=== PATIENT | male | born 1990 | race Two or more races ===

== ENCOUNTER 2024-07-01 11:34 | Emergency (ER) | payer BC, SELFPAY ==
[2024-07-01 11:52] VITALS: PULSE 88; RESP 18; O2SAT 99; BMI 26.6
--- NOTE | 2024-07-01 12:03 | PD.EDPSYCH ---
ED Psych RME/HPI General Chief Complaint: Suicidal Stated Complaint: MENTAL EVAL Time Seen by Provider: 07/01/24 11:41 Arrival date/time: 07/01/24 11:34 RME / HPI RME / HPI Narrative: 33-year-old male patient with no past medical history of mental disorder, except for obesity, currently taking phentermine, for 1 year now, came in for evaluation voluntarily for suicidal thoughts. Patient been having worsening depression, for the last 3 to 4 months, but today, patient felt suicidal, with a concrete plan of grabbing a kitchen knife and stabbing his chest. Patient denies any homicidal ideation. Patient is cooperative and calm. Related Data Previous Rx's ?Medication ?Instructions ?Recorded hydrocortisone acetate 25 mg 25 mg OK BID #24 ea 05/31/20 rectal suppository (Anucort-HC) ibuprofen 600 mg tablet 600 mg PO Q8H PRN pain #30 tabs 02/12/21 omeprazole 20 mg capsule,delayed 20 mg PO QDAY #30 caps 02/12/21 release ibuprofen 800 mg tablet 800 mg PO TID PRN pain #30 tabs 05/21/22 Allergies Allergy/AdvReac Type Severity Reaction Status Date / Time No Known Allergies Allergy Verified 06/28/22 08:43 Review of Systems Review of Systems Narrative Review of Systems: Review of system reviewed and within normal limits except mentioned in HPI ED Exam Narrative Physical exam: VITAL SIGNS: Reviewed. GENERAL APPEARANCE: Alert and interactive, follows commands, no acute distress, HEAD AND FACE: Non-traumatic. ENT: PERRL, pink conjunctivitis, eyelid no trauma, Mucous membrane moist. NECK: Supple, nontender, no nuchal rigidity. CHEST: No tenderness, no crepitus, no paradoxical movement, no retractions. LUNGS: Clear, well ventilated, symmetric, no rales, no wheezing, no ronchi, no stridor, good breath sounds bilaterally. HEART: Regular rate, regular rhythm, no murmur, no gallops. ABDOMEN: Soft, positive bowel sounds, nondistended, no guarding, nontender, no rebound, no masses, RECTAL: Deferred. GENITAL: Deferred. NEUROLOGICAL: Gross motor function intact sensory function intact, Appropriate for age. MUSCULOSKELETAL: low back nontender, full range of motion. EXTREMITIES: Nontender, full range of motion. SKIN: Color pink, dry, no rash, no lacerations, no abrasions, no contusions. LYMPHATICS: Deferred. Course Quality Measures none Orders Category Date Time Status Acetaminophen Stat Lab 07/01/24 12:12 Completed Alcohol, Blood Medical Stat Lab 07/01/24 12:12 Completed CBC Stat Lab 07/01/24 12:12 Completed CMP [Comprehensive Metabolic Panel] Stat Lab 07/01/24 12:12 Completed Drug Screen,Urine Stat Lab 07/01/24 13:04 Completed Salicylate Stat Lab 07/01/24 12:12 Completed Urinalysis Stat Lab 07/01/24 13:04 Received Vital Signs Vital signs: Vital Signs Temperature 98.2 F 07/01/24 12:34 Pulse Rate 80 07/01/24 12:34 Respiratory Rate 18 07/01/24 12:34 Blood Pressure 124/83 07/01/24 12:34 Pulse Oximetry (%) 98 07/01/24 12:34 Oxygen Delivery Method Room Air 07/01/24 12:34 Psych MDM Narrative MDM Narrative:: 33-year-old male patient with no past medical history of mental disorder, except for obesity, currently taking phentermine, for 1 year now, came in for evaluation voluntarily for suicidal thoughts. Patient been having worsening depression, for the last 3 to 4 months, but today, patient felt suicidal, with a concrete plan of grabbing a kitchen knife and stabbing his chest. Patient denies any homicidal ideation. Patient is cooperative and calm. Patient's laboratory workup all came back normal. Patient is medically cleared for crisis intervention. Crisis personnel saw the patient and has recommended that patient can be discharge home safely. I interviewed the patient, pt is calm and cooperative, denies suicidal ideation and HI at this time. break off worker has assured me that she will be setting up/helping the patient with mental health clinic appointments and outpatient community resources. Patient data External records reviewed:: None Clinical information provided by:: none Social determinants that could affect healthcare access:: none Patient has the following chronic illnesses:: None How is presenting disease/condition affected by chronic disease/condition?: no chronic disease Evaluation data The following diagnostics were reviewed and interpreted by me:: lab results Lab and/or radiology exams considered but not ordered:: None Interpretation Summary: Patient's laboratory workup all came back normal Medications / Prescriptions Medications or Prescriptions considered but not ordered:: None Medication administrations:: None Consultations Consultation(s) initiated? (list below): No Diagnosis Psych Differential Diagnosis: acute psychosis, suicidal ideation and depression Most likely diagnosis given after review of the tests above:: Suicidal ideation Admission Indicated Admission indicated?: not indicated Admission Request Was there a request for admission?: No Disposition Plan Disposition Plan: Discharge Discharge Attestation Discharge Attestation: The patient was given an opportunity to ask questions and understood the discharge instructions. Discharge instructions specifically effects, indications for sooner follow up or return to the emergency department, and the expected course of current diagnosis. Patient condition: Stable Discharge Plan Plan Patient Disposition: HOME (Self Care) Disposition Comment: Stable Prescriptions/Referrals Prescriptions/Med Rec: No Action hydrocortisone acetate [Anucort-HC] 25 mg suppository 25 mg OK BID Qty: 24 0RF omeprazole 20 mg capsule,delayed release(DR/EC) 20 mg PO QDAY Qty: 30 0RF ibuprofen 600 mg tablet 600 mg PO Q8H PRN (Reason: pain) Qty: 30 0RF ibuprofen 800 mg tablet 800 mg PO TID PRN (Reason: pain) Qty: 30 0RF Referrals: Serge Persaud MD [Primary Care Provider] - In 1 week Problem List Clinical Impression: Suicidal ideation Patient/Caregiver Discharge Instructions Education Materials: Warning Signs of Suicide and ... Additional Instructions: Thank you for the opportunity for serving you today. You are stable for discharged . You are advised to: Follow-up with your mental health MD as instructed by crisis Return to ED for worsening of symptoms Increase oral fluids Print Language: Cameroonian Stand Alone Forms: Jillian Award Info., Patient Portal Info Letter MEREDITH/ERICA Supervising Physician TOÑITO Supervising Physician: MD Danni
[2024-07-01 12:23] LABS: Basophils % (Auto) 1 % (0-2.5); Eosinophils # (Auto) 0.1 Thou/mm3 (0.0-0.5); Eosinophils % (Auto) 1 % (0-10); Hematocrit 44.4 % (41.0-53.0); Hemoglobin 14.7 g/dL (13.5-16.0); Immature Granulocytes % (Auto) 0 % (0-0); Immature Granulocytes Auto 0.01 Thou/mm3 (0.00-0.00); Lymphocytes # (Auto) 1.2 Thou/mm3 (1.0-4.8); Lymphocytes % (Auto) 16 % (10-50); Mean Corpuscular HGB Conc 33.1 g/dl (31.0-37.0); Mean Corpuscular Hemoglobin 26.5 pg (25.0-35.0); Mean Corpuscular Volume 80 fL (80-100); Monocytes # (Auto) 0.6 Thou/mm3 (0.0-0.8); Monocytes % (Auto) 7 % (0-12); Neutrophils # (Auto) 5.9 Thou/mm3 (1.8-7.7); Neutrophils % (Auto) 76 % (37-80); Nucleated Red Blood Cell % 0 /100 WBC (0); Platelet Count 213 Thou/mm3 (140-440); RDW Standard Deviation 37.4 fL (35.1-43.9); Red Blood Count 5.55 Miln/mm3 (4.50-5.90); White Blood Count 7.7 Thou/mm3 (3.8-10.6)
[2024-07-01 12:34] VITALS: BP 124/83; PULSE 80; RESP 18; TEMP 36.8; O2SAT 98
[2024-07-01 12:51] LABS: Acetaminophen < 2.0 mcg/mL (10.0-20.0); Alanine Aminotransferase 42 U/L (10-49); Albumin/Globulin Ratio 1.7 (1.2-2.2); Alcohol, Blood Medical < 10.0 mg/dL (0-10.0); Alkaline Phosphatase 56 U/L (46-116); Anion Gap 5 (7-16); Aspartate Amino Transferase 30 U/L (0-34); BUN/Creatinine Ratio 8 Ratio (12-20); Blood Urea Nitrogen 10 mg/dL (9-23); Carbon Dioxide 28.6 mMol/L (20.0-31.0); Chloride 106 mMol/L (98-107); Creatinine (Component) 1.2 mg/dL (0.6-1.3); Estimated Creatinine Clearance 85.9 mL/min (>60); Globulin 2.9 gm/dL (2.3-3.5); Glucose 95 mg/dL (74-106); Osmolality,Calculated 278 (275-295); Potassium 4.4 mMol/L (3.4-5.1); Salicylate < 3.0 mg/dL; Sodium 140 mMol/L (136-145); Total Protein 7.9 gm/dL (5.7-8.2); eGFR > 60 See Note
[2024-07-01 13:17] LABS: Collection Type, Urine Clean Catch; Squamous Epithelial Cell,Urine 0 /hpf (0-5)
[2024-07-01 13:28] LABS: Bilirubin,Urine Negative (Negative); Blood,Urine Trace (Negative); Clarity,Urine Clear (Clear/Hazy); Color,Urine Lt-Yellow (Lt Yel-Yel); Glucose, Urine Negative (Negative); Ketones,Urine Negative (Negative); Leukocyte Esterase,Urine Negative (Negative); Nitrite,Urine Negative (Negative); Protein,Urine Negative (Neg - Trace); RBC,Urine 9 /hpf (0-3); Specific Gravity,Urine 1.022 (1.001-1.035); Urobilinogen,Urine Negative mg/dL (0.0-1.0); WBC,Urine 3 /hpf (0-5)
[2024-07-01 13:33] LABS: Amphetamine/Methamp Scrn,U Negative (Negative); Barbiturate Screen,Urine Negative (Negative); Benzodiazepines Screen,Urine Negative (Negative); Benzoylecgonine Screen, Ur Negative (Negative); Fentanyl Screen,Urine Negative (Negative); Opiate Screen,Urine Negative (Negative); THC Screen,Urine Negative (Negative)
--- NOTE | 2024-07-01 13:37 | PC.CC ---
This is a 33-year-old, , male who presented to the ED via ambulance for a mental health evaluation. Sathya met with patient [id number] to complete assessment. ASW introduced self, role, and reason for assessment. ASW disclosed limits of confidentiality as well. Patient appeared alert and oriented to self, place, and situation. Patient?s mood appeared depressed and tearful; his behavior appeared disinhibited with flat affect. Patient?s thought process was linear and organized. No signs of delusions, paranoid or V/h. Patient reports he has been feeling depressed with sadness for the past three months with thoughts of harming himself but no plan or intention. However, today he was frustrated because he got into an argument with his and he had a plan of grabbing a knife and stabbing himself out of frustration not with the intention of dying. The patient is not able to articulate anything significant life changes that have occurred to be causing him to feel depressed except for taking ?Phentermine to lose weight and Testosterone.? Patient reports that this could be a contributing factor for the changes in his mood. Patient is not reporting past suicide attempts, auditory or visual hallucinations, or homicidal ideation. The patient has never been connected to mental health and has not been on a 5150-hold in the past. The patient does not take any psychotropic medication. The patient did not report any sleep disturbances and reports to sleeping an average of 5-6 hours a night. Patient reported protective factors include his children, , and having a stable job with the [employer]. The following information is collateral from patient?s Kareen Acevedo with the consent of the patient. Patient?s reports she has seen a change in the patient?s behavior; however, the patient did express he was depressed a week ago. She reports the patient has been going to work regularly. Per patient?s , the patient did have a change of medication as he started to take testosterone. The patient expressed he did not want to be placed on a 5150-hold and is willing and able to safety plan. Upon clinical consultation with Mary LOOMIS the patient does need meet criteria for 5150-Hold. The patient is willing and able to safety plan as well as the patient?s . The safety plan will include that the patient be discharged to his , Kareen and she will remove all sharps and medication from the home, patient scheduled an appointment with [facility] in [place] for Friday, July 07, 2024 at 11:30am, a referral was sent for outpatient mental health services to the [facility], Michelle from [facility] made contact with ASW and reported they received referral and they will be contacting the patient. KEON Gomez, health coach Sara, and TEENA Arias were made aware of the plan for the patient. ASW to remain available.
--- NOTE | 2024-07-01 13:39 | PC.NURSE ---
called to come get pt. Pt aware of safety plan and verbalizes understanding.
[2024-07-01 13:45] VITALS: BP 124/83; PULSE 86; RESP 17; TEMP 36.9; O2SAT 99
== END 2024-07-01 14:15 | disposition home or self-care (01) ==
PROVIDERS: Nurse Practitioner Family; Emergency Provider Emergency Medicine; PCP Family Medicine
DX: R45.851 Suicidal ideations (principal)
CPT/HCPCS: 36415; 80053; 80307; 80320; 80329; 81001; 85025; 90839; 96127; 99284; G0480